=== PATIENT | female | born 1975 | race Caucasian/White ===

== ENCOUNTER → 2017-01-11 | Outpatient (CLI) | payer BC | END | disposition home or self-care (01) | LOC: LAB.O 14:35 | PROVIDERS: ATTEND Family Medicine | DX: H92.02 Otalgia, left ear (principal) ==

== ENCOUNTER → 2017-10-04 | Outpatient (CLI) | payer BC | END | disposition home or self-care (01) | LOC: LAB.O 07:47 | PROVIDERS: ATTEND Family Medicine | DX: I10 Essential (primary) hypertension (principal) ==

== ENCOUNTER → 2019-03-20 | Outpatient (CLI) | payer BC ==
--- NOTE | 2019-03-22 17:35 | MAM ---
EXAM DESCRIPTION: 3D Screening BILATERAL : Digital Mammography. CLINICAL HISTORY: 43 years Female SCREENING . No personal history of breast cancer no complaints. Remote family history of breast cancer. Childbirth. Premenopausal. No HRT. Lifetime risk of developing breast cancer (Tyrer-Cuzick model)(%): 11.0. COMPARISON: Bilateral screening 2-D mammography 01/07/2014.. TECHNIQUE: Bilateral CC and MLO projection full-field images, digital tomosynthesis mammographic technique. Bilateral digital 2-D full-field MLO images. CAD not available for tomosynthesis or 2-D images. FINDINGS: The breast parenchymal density pattern is: Extremely dense breast tissue, which lowers the sensitivity of mammography. No skin thickening or nipple retraction. The mass seen the inferior medial quadrant anterior right breast on the prior study is no longer visualized. Architectural distortion in the anterior third of the right breast approximately 2 cm from the nipple at the 8:00 position. No new focal, stellate mass or density, focal asymmetry , and no suspicious microcalcifications left breast. IMPRESSION: BI-RADS CATEGORY: 0 - INCOMPLETE- Need additional imaging evaluation. FOLLOW-UP: Recall for additional imaging: Targeted right breast ultrasound of the region of interest in the report. Optional diagnostic digital images of the right breast if indicated by sonographic findings.. Written communication concerning the IMPRESSION and Follow-up, will be mailed to the patient and referring health care provider. Electronically signed by: Feliciano Loera MD 03/22/2019 5:33 PM CDT
== END ==
LOC: MAMMO 13:00
PROVIDERS: ATTEND Family Medicine
DX: Z12.31 Encounter for screening mammogram for malignant neoplasm of breast (principal)